=== PATIENT | female | born 1995 | race Caucasian/White ===

== ENCOUNTER 2024-06-09 07:20 | Inpatient (IN) | payer OTHER ==
[~2024-06-09] VITALS: Ht 157.5 cm; Wt 95.3 kg
[2024-06-09 08:31] LABS: AMNISURE ROM TEST POSITIVE
[2024-06-09] MEDS ORDERED: LACTATED RINGER'S 1,000 ML IV SCH (09:15)
[2024-06-09] MEDS ORDERED: MAGNESIUM HYDROXIDE/AL HYDROX 30 ML CUP PO PRN (09:15)
[2024-06-09] MEDS ORDERED: OXYTOCIN/0.9 % SODIUM CHLORIDE 30 UNITS/500 ML BAG IV SCH (09:15)
[2024-06-09] MEDS ORDERED: CALCIUM CARBONATE 500 MG CHEW PO PRN (09:15)
[2024-06-09] MEDS ORDERED: LACTATED RINGER'S 1,000 ML IV PRN (09:15)
[2024-06-09 09:21] LABS: HEMATOCRIT 35.2 % (35.0-50.0); MCH 30.5 (27-36); MCHC 34.2 g/dl (30-36); MCV 89.1 fl (81-99); RBC 3.95 M/ul (4.3-5.7); RDW 14.6 (10.5-15.0)
[2024-06-09 09:37] LABS: AMPHETAMINES, URINE NEGATIVE (NEGATIVE); BARBITURATES, URINE NEGATIVE (NEGATIVE); BENZODIAZEPINE, URINE NEGATIVE (NEGATIVE); BUPRENORPHINE, URINE NEGATIVE (NEGATIVE); CANNABINOID, URINE NEGATIVE (NEGATIVE); COCAINE, URINE NEGATIVE (NEGATIVE); ECSTASY, URINE NEGATIVE (NEGATIVE); FENTANYL, URINE NEGATIVE (NEGATIVE); METHADONE, URINE NEGATIVE (NEGATIVE); OPIATES, URINE NEGATIVE (NEGATIVE); OXYCODONE, URINE NEGATIVE (NEGATIVE); PHENCYCLIDINE, URINE NEGATIVE (NEGATIVE)
[2024-06-09 09:55] LABS: ABO A; ANTIBODY SCREEN NEGATIVE; RH POSITIVE
[2024-06-09 10:08] VITALS: BP 114/73
[2024-06-09] MEDS ORDERED: ePHEDrine sulfate 5 MG/ML SYRINGE IV PRN (12:45)
[2024-06-09] MEDS ORDERED: LACTATED RINGER'S 2,000 ML IV ONE (12:45)
[2024-06-09] MEDS ORDERED: ROPIVACAINE 0.2% 200 ML BAG EPIDURAL SCH (12:45)
[2024-06-09] MEDS ORDERED: LACTATED RINGER'S 500 ML IV PRN (12:45)
[2024-06-09] MEDS ORDERED: OXYTOCIN/0.9 % SODIUM CHLORIDE 500 ML IV SCH (15:30)
[2024-06-09] MEDS ORDERED: ondansetron HCL 4 MG/2 ML VIAL IV ONE (15:45)
[2024-06-09] MEDS ORDERED: ePHEDrine KIT FOR FBC IV ONE (16:31)
--- NOTE | 2024-06-09 17:35 | PR ---
[facility] [address] [place], [place] [address] Signed Progress Notes IP Datetime Report Generated by BERNARDO: 06/09/2024 17:35 PROGRESS NOTES: [id number] Impression: Normal Progression of Labor; Reassuring Heart Rate Procedures: Intrauterine Pressure Catheter; Sterile Vag Exam Plan: Continue Present Management; Augmentation Informed Consent Obtain: Vaginal Delivery VITAL SIGNS: [id number] Vital Signs: Reviewed; Within Normal Limits EXAM: [id number] Dilatation: 1.5 Effacement: 80 Station: -3 Contractions: Irregular MEMBRANES: [id number] Comments: Pt seen and examined. Doing well. Cervix unchanged. Comfortable w/ epidural. On pitocin. Recommended IUPC and pt understands and agrees. IUPC placed w/out difficulty. Continue pitocin and will titrate until adequate contractions. Minimize cervical exams. All questions answered. FETUS A: [id number] FHR Baseline: 130 Variability: Moderate 6-25bpm Accelerations: 15X15 Decelerations: None FHR Category: Category I Presentation: Vertex Comments on Fetus A: No evidence of metabolic acidosis FETUS B: [id number] Signing Physician: Paris Carney DO Copies: ~ *Electronically Signed* 06/09/24 5328 PARIS CARNEY (JEREMIE) DO PATIENT NAME: GLENROY BROWN PROGRESS NOTE DATE OF : [birth year] PHYSICIAN: PARIS CARNEY DO (JD) RPT #: [id number] REPORT IS CONFIDENTIAL AND NOT TO BE RELEASED WITHOUT AUTHORIZATION
[2024-06-09] MEDS ORDERED: ePHEDrine sulfate 50 MG/ML AMP ONE (18:09)
[2024-06-09] MEDS ORDERED: SODIUM CHLORIDE 0.9% 20 ML IV ONE (21:01)
[2024-06-09] MEDS ORDERED: Ropivacaine HCl 0.5% 30 ML VIAL ONE (21:01)
[2024-06-09] MEDS ORDERED: fentaNYL citrate 100 MCG/2 ML VIAL ONE (21:01)
--- NOTE | 2024-06-09 21:29 | PR ---
[facility] [address] [place], [place] [address] Signed Progress Notes IP Datetime Report Generated by CPStefani: 06/09/2024 21:29 PROGRESS NOTES: [id number] Impression: Reassuring Heart Rate Procedures: Sterile Vag Exam Plan: Continue Present Management; Augmentation Informed Consent Obtain: Vaginal Delivery; Risks, Benefits and Alternatives Discussed VITAL SIGNS: [id number] Vital Signs: Reviewed; Within Normal Limits EXAM: [id number] Dilatation: 2.0 Effacement: 80 Station: -2 Contractions: Irregular MEMBRANES: [id number] Comments: Pt seen and examined. Doing well. BPs improved w/ IM ephredrine 25mg. FHT reassuring. Afebrile. CTXs nearly adequate w/ pitocin at 8mU. Continue pitocin per protocol. Reviewed reassuring FHT, afebrile, and anticipated progress of labor. All questions answered. Will continue augmentation. Pt desires to proceed with trial of vaginal delivery FETUS A: [id number] FHR Baseline: 130 Variability: Minimal - >Undetectable to <=5bpm Accelerations: 15X15 Decelerations: None FHR Category: Category I Presentation: Vertex Comments on Fetus A: No evidence of metabolic acidosis FETUS B: [id number] Signing Physician: Paris Carney DO Copies: ~ *Electronically Signed* 06/09/24 1549 PARIS CARNEY (JEREMIE) DO PATIENT NAME: GLENROY BROWN PROGRESS NOTE DATE OF : [birth year] PHYSICIAN: PARIS CARNEY (JD) DO RPT #: [id number] REPORT IS CONFIDENTIAL AND NOT TO BE RELEASED WITHOUT AUTHORIZATION
[2024-06-10] MEDS ORDERED: fentaNYL citrate 100 MCG/2 ML VIAL ONE ×2 (00:38→06:16)
[2024-06-10] MEDS ORDERED: dexmedeTOMIDine HCl 200 MCG/2 ML VIAL ONE (06:16)
--- NOTE | 2024-06-10 07:51 | PR ---
[facility] [address] [place], [place] [address] Signed Progress Notes IP Datetime Report Generated by BERNARDO: 06/10/2024 07:51 PROGRESS NOTES: [id number] Impression: Normal Progression of Labor; Reassuring Heart Rate Procedures: Sterile Vag Exam Plan: Continue Present Management; Anticipate Vaginal Delivery Informed Consent Obtain: Vaginal Delivery; Risks, Benefits and Alternatives Discussed VITAL SIGNS: [id number] Vital Signs: Reviewed; Within Normal Limits EXAM: [id number] Dilatation: 9.5 Effacement: 90 Station: 0 Contractions: q 2 minutes MEMBRANES: [id number] Comments: Pt seen and examined. Doing well. Comfortable w/ epidural. Reassuring FHT. Afebrile. Now 9.5cm. Discussed EFW and clinical assessment of adequate pelvis with this exam. Anticipate soon. All questions answered. FETUS A: [id number] FHR Baseline: 130 Variability: Minimal - >Undetectable to <=5bpm Accelerations: 15X15 Decelerations: None FHR Category: Category II Presentation: Vertex Comments on Fetus A: No evidence of metabolic acidosis FETUS B: [id number] Signing Physician: Paris Carney DO Copies: ~ *Electronically Signed* 06/10/24 0751 PARIS CARNEY (JEREMIE) DO PATIENT NAME: GLENROY BROWN PROGRESS NOTE DATE OF : [birth year] PHYSICIAN: PARIS CARNEY DO (JD) RPT #: [id number] REPORT IS CONFIDENTIAL AND NOT TO BE RELEASED WITHOUT AUTHORIZATION
[2024-06-10] MEDS ORDERED: OXYTOCIN/0.9 % SODIUM CHLORIDE 500 ML IV SCH ×2 (08:15→11:00)
[2024-06-10] MEDS ORDERED: ACETAMINOPHEN 500 MG TAB ONE (08:53)
[2024-06-10] MEDS ORDERED: ACETAMINOPHEN 500 MG TAB PO ONE (09:00)
[2024-06-10] MEDS ORDERED: ondansetron HCL 4 MG/2 ML VIAL ONE ×2 (09:04→10:00)
[2024-06-10] MEDS ORDERED: ondansetron HCL 4 MG/2 ML VIAL IV PRN ×2 (09:15→11:00)
[2024-06-10] MEDS ORDERED: GENTAMICIN SULFATE 130 MG in DEXTROSE 5% 100 ML IV SCH (09:50)
[2024-06-10] MEDS ORDERED: LIDOCAINE 2% W/ EPI 1:100,000 20 ML VIAL ONE (09:55)
--- NOTE | 2024-06-10 09:55 | PR ---
[facility] [address] [place], [place] [address] Signed Progress Notes IP Datetime Report Generated by BERNARDO: 06/10/2024 09:55 PROGRESS NOTES: [id number] Impression: Non-reassuring Heart Rate; Intrauterine Inflammation Procedures: Sterile Vag Exam Plan: Deliver- Section Other Plans: ABx Informed Consent Obtain: Section Delivery; Dilatation and Curretage; Risks, Benefits and Alternatives Discussed VITAL SIGNS: [id number] Vital Signs: Reviewed; Within Normal Limits EXAM: [id number] Dilatation: 9.5 Effacement: 90 Station: 0 Contractions: q 2 min MEMBRANES: [id number] Comments: tachycardia, maternal fever, and now recurrent late decelerations not improved w/ intrauterine recussitation. Plan to proceed with primary C/S. Risks, benefits, and alternatives discussed. Consents signed. Orders placed. Will start Amp / Gent / Clinda. Terbutaline administered. FETUS A: [id number] FHR Baseline: 130 Variability: Minimal - >Undetectable to <=5bpm Accelerations: 15X15 Decelerations: Late FHR Category: Category II Presentation: Vertex Comments on Fetus A: No evidence of metabolic acidosis FETUS B: [id number] Signing Physician: Paris Carney DO Copies: ~ *Electronically Signed* 06/10/24 0915 PARIS CARNEY (JEREMIE) DO PATIENT NAME: GLENROY BROWN PROGRESS NOTE DATE OF : [birth year] PHYSICIAN: PARIS CARNEY (JD) DO RPT #: [id number] REPORT IS CONFIDENTIAL AND NOT TO BE RELEASED WITHOUT AUTHORIZATION
[2024-06-10] MEDS ORDERED: LACTATED RINGER'S 1,000 ML IV PRN (10:00)
[2024-06-10] MEDS ORDERED: CLINDAMYCIN PHOSPHATE/D5W 900 MG/50 ML PIGGYBACK IV ONE (10:00)
[2024-06-10] MEDS ORDERED: SOD+POT BICARB/CITRIC ACID 2 EA TABLET.EFF PO ONE (10:00)
[2024-06-10] MEDS ORDERED: OXYTOCIN 10 UNITS/ML VIAL ONE ×3 (10:00→10:39)
[2024-06-10] MEDS ORDERED: AMPICILLIN SOD 2 GM in SODIUM CHLORIDE 0.9% 100 ML IV ONE (10:00)
[2024-06-10] MEDS ORDERED: TERBUTALINE SULFATE 1 MG/ML AMP SUB-Q ONE (10:00)
[2024-06-10] MEDS ORDERED: PHENYLEPHRINE HCL 10 MG/ML VIAL ONE (10:07)
[2024-06-10] MEDS ORDERED: METOCLOPRAMIDE HCL 10 MG/2 ML SDV ONE ×2 (10:26)
[2024-06-10] MEDS ORDERED: DEXAMETHASONE SOD PHOS 4 MG/ML VIAL ONE (10:26)
[2024-06-10] MEDS ORDERED: Ropivacaine HCl 0.5% 30 ML VIAL ONE (10:30)
[2024-06-10] MEDS ORDERED: SODIUM CHLORIDE 0.9% 20 ML IV ONE (10:31)
[2024-06-10] MEDS ORDERED: LACTATED RINGER'S 1,000 ML IV ONE (10:39)
[2024-06-10] MEDS ORDERED: MORPHINE SULFATE 1 MG/ML VIAL ONE (10:47)
[2024-06-10] MEDS ORDERED: METOCLOPRAMIDE HCL 10 MG/2 ML SDV IV PRN (11:00)
[2024-06-10] MEDS ORDERED: bisacodyL 10 MG SUPP PR PRN (11:00)
[2024-06-10] MEDS ORDERED: PROMETHAZINE HCL 25 MG SUPP PR PRN (11:00)
[2024-06-10] MEDS ORDERED: OXYCODONE/APAP 5/325 TAB PO PRN (11:00)
[2024-06-10] MEDS ORDERED: PROMETHAZINE HCL 25 MG TAB PO PRN (11:00)
[2024-06-10] MEDS ORDERED: HYDROCODONE/ACETA 5/325 TAB PO PRN (11:00)
[2024-06-10] MEDS ORDERED: PROCHLORPERAZINE EDISYLATE 10 MG/2 ML VIAL IV PRN ×2 (11:00→11:30)
[2024-06-10] MEDS ORDERED: KETOROLAC TROMETHAMINE 30 MG/ML VIAL IV PRN (11:30)
[2024-06-10] MEDS ORDERED: HYDROmorphone HCL 1 MG/ML SYR IV PRN (11:30)
[2024-06-10] MEDS ORDERED: diphenhydrAMINE HCL 50 MG/ML VIAL IV PRN (11:30)
[2024-06-10] MEDS ORDERED: NALOXONE HCL 0.4 MG SYR IV PRN (11:30)
[2024-06-10 11:46] VITALS: BP 102/55
[2024-06-10] MEDS ORDERED: KETOROLAC TROMETHAMINE 30 MG/ML VIAL IV SCH (12:00)
[2024-06-10] MEDS ORDERED: ENOXAPARIN SODIUM 40 MG/0.4 ML SYR SUB-Q SCH (12:00)
[2024-06-10] MEDS ORDERED: FERROUS SULFATE 325 MG TAB PO SCH (17:00)
[2024-06-10] MEDS ORDERED: AMPICILLIN SOD 2 GM in SODIUM CHLORIDE 0.9% 100 ML IV SCH (20:00)
[2024-06-10] MEDS ORDERED: SENNOSIDES/DOCUSATE 1 EA TAB PO SCH (21:00)
[2024-06-10] MEDS ORDERED: CLINDAMYCIN PHOSPHATE/D5W 900 MG/50 ML PIGGYBACK IV SCH (22:00)
[2024-06-11 05:35] LABS: HEMOGLOBIN 8.6 g/dL (12.0-18.0); MCH 30.8 (27-36); MCHC 34.3 g/dl (30-36); MCV 89.7 fl (81-99); RBC 2.78 M/ul (4.3-5.7); RDW 14.6 (10.5-15.0)
[2024-06-11] MEDS ORDERED: GENTAMICIN SULFATE 480 MG in DEXTROSE 5% 250 ML IV SCH (12:00)
[2024-06-11] MEDS ORDERED: IBUPROFEN 600 MG TAB PO SCH (12:00)
--- NOTE | 2024-06-11 14:08 | PR ---
[facility] [place] [facility] [address] [place], [place] [address] Signed PP Progress Notes Datetime Report Generated by CPStefani: 06/11/2024 14:08 SUBJECTIVE: [id number] Pain: Within Normal Limits Flatus: Yes Bowel Movement: No Vital Signs: [id number] Vital Signs: Reviewed; Within Normal Limits EXAM: Ongoing Cardiovascular: Normal Respiratory: Normal Abdomen/Uterus: Normal Lochia: Normal Vulva/Perineum: Not Done Breasts: Not Done CVA Tenderness: Normal Extremities: Normal Incision: Normal Progress: Normal Exam Comments: Fundus firm U-2 nontender. Incision well healed. Afebrile IMPRESSION/PLAN/PROCEDURES: [id number] Impression: Normal Progression Plan: Discharge Progress Notes: Pt seen and examined. Doing well. Ambulating, voiding, and tolerating full diet. Pain and lochia minimal. Pumping breastmilk. Baby at NICU but doing well and anticipated d/c home for baby tomorrow. Pt desires d/c home now. Reviewed d/c instructions and signs of endometritis. Reviewed d/c medications. Planning OCPS for pp contraception Signing Physician: Paris Carney DO Copies: ~ *Electronically Signed* 06/11/24 9477 PARIS CARNEY (JEREMIE) DO PATIENT NAME: GLENROY BROWN PROGRESS NOTE DATE OF : 94 PHYSICIAN: PARIS CARNEY DO (JD) RPT #: [id number] REPORT IS CONFIDENTIAL AND NOT TO BE RELEASED WITHOUT AUTHORIZATION
--- NOTE | 2024-06-12 18:46 | OR ---
[facility] [address] [place], [place] [address] Signed DATE OF OPERATION: 06/10/2024 SURGEON: Paris Carney DO PREOPERATIVE DIAGNOSES: 1. Intrauterine at 39 weeks' gestation. 2. Non-reassuring heart tracing. 3. Chorioamnionitis. POSTOPERATIVE DIAGNOSIS: 1. Intrauterine at 39 weeks gestation. 2. Non-reassuring heart tracing. 3. Chorioamnionitis. 4. Left occiput posterior position. ROCEDURE PERFORMED: Primary low transverse section. BOBCAT OPERATOR: None. ANESTHESIA: Epidural with postoperative TAP block. ESTIMATED BLOOD LOSS: 800 mL. DRAINS: Orozco to gravity. COMPLICATIONS: None. FINDINGS: Delivery of viable male , 7 pounds 13 ounces with Apgars of 7 and 8, born in the LOP position via low transverse section. Thick meconium and no nuchal cord was appreciated. Normal uterus, tubes, and ovaries. Cord blood gases, ABG pH 7.25, arterial bicarb 26.0, arterial base excess -2.8, venous pH 7.32, venous pCO2 of 45.9, venous bicarb 23.5, venous base excess -3.1. Electronically Signed By: PARIS CARNEY DO (JD) 06/12/24 1846 PATIENT NAME: GLENROY BROWN OPERATIVE REPORT DATE OF : [birth year] REPORT #: [id number] PHYSICIAN: PARIS CARNEY (JEREMIE) DO PCP: SHERI ALMANZA NP REPORT IS CONFIDENTIAL AND NOT TO BE RELEASED WITHOUT AUTHORIZATION [facility] [address] [place], [place] [address] Signed INDICATIONS: Mrs. Brown is a very pleasant 28-year-old, G1, P0, with IUP at 39 weeks two days' gestation, who presented to Labor and Delivery with rupture of membranes. Pitocin augmentation was initiated after no cervical change was noted. The patient was made good progression of labor once adequate contractions were noted. At approximately 29 hours of rupture, the patient developed a maternal fever, not improved with Tylenol. tachycardia with recurrent late decelerations was noted. Decision was made to proceed with primary low transverse section emergently. Risks, benefits, and alternatives were discussed in detail with the patient. The patient received amp, gent, and clinda preoperatively. DESCRIPTION OF PROCEDURE: The patient was taken the OR. Time-out was performed to confirm correct patient, correct procedure. Epidural had been previously established and this was bolused and found to be adequate. Orozco catheter had been previously inserted. Amp, gent, and clinda were administered per SCIP protocol and no preoperative heparin was indicated. Pfannenstiel skin incision was made approximately 2 cm above the pubic symphysis and carried down to the fascia. Fascia was incised in midline. Fascial incision was extended bilaterally using curved Asencio scissors. Fascia was grasped with Ruben's, elevated, and the underlying rectus dissected off bluntly and sharply. The rectus was divided bluntly in the midline and peritoneum was entered bluntly. Peritoneal incision was extended cephalad, caudad using blunt and sharp dissection. The lower uterine segment was identified and Bennett self retractor was placed. Hysterotomy was performed using a surgical scalpel. Amnion was ruptured and thick meconium fluid was noted. Hysterotomy was extended bilaterally using blunt dissection. The surgeon's hand was placed in the uterine cavity and the vertex delivered into the maternal abdomen without difficulty in the LOP position. The remainder of the was delivered with the assistance of fundal pressure. Cord was doubly clamped and cut. The handed to the waiting pediatric team for further care. Cord blood was obtained for routine analysis and cord gases were obtained. The placenta was expressed, intact with a centrally inserted three-vessel cord. Uterine contents were cleared of any remaining products of conception or clot. Pitocin was administered per protocol. The patient did receive terbutaline preoperatively, and there was some initial atony that resolved quickly. The hysterotomy was repaired in two layers of 0-Monocryl, the first being a running locked layer and the second a running imbricating suture with excellent hemostasis appreciated. The pelvis was irrigated and found to be hemostatic. Normal uterus, tubes, and ovaries were appreciated. Once hemostasis was appreciated, the Bennett retractor was removed and the peritoneum was reapproximated using 2-0 Vicryl in a running nonlocked manner. The rectus was made hemostatic with judicious use of Bovie electrocautery and was plicated loosely in the midline with three interrupted sutures of 0-Vicryl. Fascia was reapproximated using 0-Vicryl in a running nonlocked manner. Subcu was reapproximated using 3-0 Vicryl. The skin was reapproximated with 2-0 Quill Electronically Signed By: PARIS DAHL) DO MILADIS 06/12/24 1846 PATIENT NAME: GLENROY BROWN OPERATIVE REPORT DATE OF : [birth year] REPORT #: [id number] PHYSICIAN: PARIS CARNEY) PCP: SHERI ALMANZA NP REPORT IS CONFIDENTIAL AND NOT TO BE RELEASED WITHOUT AUTHORIZATION [address] [place], [place] [address] Signed in a subcuticular stitch with excellent hemostasis and cosmesis. The uterus was Crede'd for scant amount of blood and the patient remained in the OR for postoperative TAP block. Sponge, needle, and instrument count was correct x2 at the end of the procedure. DO DANIELLE Mckinney/MODL /[id number] Copies: ~ Electronically Signed By: PARIS CARNEY DO (JD) 06/12/24 1846 PATIENT NAME: GLENROY BROWN OPERATIVE REPORT DATE OF : [birth year] REPORT #: [id number] PHYSICIAN: PARIS CARNEY DO (JD) PCP: SHERI ALMANZA NP REPORT IS CONFIDENTIAL AND NOT TO BE RELEASED WITHOUT AUTHORIZATION
--- NOTE | 2024-06-14 10:31 | PATH ---
[facility] [address] [place], [place] [address] Signed SPECIMEN(S): A PLACENTA SPECIMEN SOURCE: A. PLACENTA CLINICAL HISTORY: Chorioamnionitis. 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 - Trivascular with acute funisitis. - Mildly increased umbilical cord coiling index: 4 - membranes: - Marginal insertion. - Acute chorioamnionitis. - Placental disc: - 470 g - Acute inflammation present on chorionic plate. - Focal intervillous fibrin deposition. - No villitis or neoplasm identified. [facility] MICROSCOPIC EXAMINATION: Histologic sections of all submitted blocks are examined by light microscopy. These findings, together with the gross examination, support the pathologic diagnosis. GROSS DESCRIPTION: The specimen, labeled and designated "Myke Brown, placenta," is received in formalin and consists of calhoun discoid placenta with the following parameters: Umbilical cord: Insertion eccentric, measurement 25.1 x 1.5 cm; trivascular. Cord coiling index (per 10 cm): Four. Lesions: Areas of knuckling. Membranes: Insertion site: Marginal, yellow-green friable and . Other: Not grossly identified. Chorionic Plate: Normal radiating vascular pattern, yellow-green and shiny. Lesions: Not grossly identified. Other: Not grossly identified. Maternal Surface: Normal cotyledons, fragmented. Lesions: Not grossly identified. PATIENT NAME: GLENROY BROWN PATHOLOGY DATE OF : [birth year] REPORT #: [id number] PHYSICIAN: KUSHAL PATHOLOGY PCP: SHERI ALMANZA NP REPORT IS CONFIDENTIAL AND NOT TO BE RELEASED WITHOUT AUTHORIZATION [facility] [address] [place], [place] [address] Signed Measurement: 19.0 x 15.8 x 3.0 cm. 470 g Cut Surface: Maroon and spongy. Lesions: One area of murray firm consolidation that is 0.9 cm in greatest dimension. This area involves less than 10% of send parenchyma. Basal plate fibrin 0.1 cm in thickness. Other Findings: Separate within the container is additional portion of placenta parenchyma that is 3.5 x 2.6 x 2.4 cm. Cut sections reveal a pink-red spongy placenta parenchyma. Cassette Summary: (A1) membranes and umbilical cord (A2) area of consolidation (A3) placenta parenchyma (A4) placenta parenchyma FB (under the direct supervision of a pathologist) The Gross Description was prepared using a voice recognition system. The report was reviewed for accuracy; however, sound-alike word errors, addition and/or deletions may occur. If there is any question about this report, please contact Client Services. ADDITIONAL NOTES: Immunohistochemical and/or in situ hybridization studies if performed in this case included appropriate positive controls that reacted as expected. This test was developed and its performance characteristics determined by [facility]. It has not been cleared or approved by the U.S. Food and Drug Administration. The FDA has determined that such clearance or approval is not necessary. This test is used for clinical purposes. It should not be regarded as investigational or for research. [facility] is certified under the Clinical Laboratory Improvement Amendments of 1988 (CLIA) as qualified to perform high complexity clinical laboratory testing. PERFORMING LABORATORY: Technical component was performed by [facility], [address] [place] [id number] (CLIA# [id number]). Professional interpretation was performed by [facility], [address] [place] [id number] (CLIA#: [id number]). Diagnostician: Dewayne De Souza MD Pathologist PATIENT NAME: LYLA BROWNMOHINDER PATHOLOGY DATE OF : [birth year] REPORT #: [id number] PHYSICIAN: [facility]AL PATHOLOGY PCP: SHERI ALMANZA NP REPORT IS CONFIDENTIAL AND NOT TO BE RELEASED WITHOUT AUTHORIZATION [address] [address] Signed Electronically Signed 06/14/2024 Copies: ~ PATIENT NAME: KEVINGLENROY PATHOLOGY DATE OF : [birth year] REPORT #: [id number] PHYSICIAN: KUSHAL PATHOLOGY PCP: SHERI ALMANZA NP REPORT IS CONFIDENTIAL AND NOT TO BE RELEASED WITHOUT AUTHORIZATION
== END 2024-06-11 17:45 | disposition home or self-care (01) | DRG 788 ==
LOC: FBCO 07:20 → FBC 08:54
PROVIDERS: ADMIT Obstetrics & Gynecology; ATTEND Obstetrics & Gynecology
PROC: 10D00Z1 Extraction of Products of Conception, Low, Open Approach (ICD-10-PCS; principal; 2024-06-10 10:00)
DX: O41.1230 Chorioamnionitis, third trimester, not applicable or unspecified (principal); Z3A.39 39 weeks gestation of pregnancy; Z37.0 Single live birth; O77.0 Labor and delivery complicated by meconium in amniotic fluid; O76 Abnormality in fetal heart rate and rhythm complicating labor and delivery
CPT/HCPCS: 01961; 36415; 74018; 76942; 80307; 82803; 84112; 85027; 86850; 86900; 86901; A9270; G0463; J0290; J1100; J1171; J1580; J1650; J1885; J2274; J2371; J2405; J2590; J2765; J2795; J3010; J3490; J7060; J7121